=== PATIENT | female | born 1950 | race Two or more races ===

== ENCOUNTER 2018-06-01 15:36 | Emergency (ER) | payer OTHER ==
[~2018-06-01] VITALS: Ht 149.9 cm; Wt 65.8 kg
[~2018-06-01 15:36] MED LIST: ENAL5TAB; GLIP1TAB38; METF-370
[2018-06-01 17:09] LABS: Anion Gap 9 (5-15); Blood Urea Nitrogen 18 mg/dL (7-18); Calcium 9.4 mg/dL (8.5-10.1); Carbon Dioxide 22 mmol/L (21-32); Chloride 106 mmol/L (98-107); Glucose 175 mg/dL (74-106); Potassium 3.6 mmol/L (3.5-5.1); Sodium 137 mmol/L (136-145)
[2018-06-01 17:14] LABS: Alanine Aminotransferase 19 U/L (13-56); Alkaline Phosphatase 126 U/L (45-117); Aspartate Aminotransferase 17 U/L (15-37); BUN/Creatinine Ratio 25.7; Bilirubin, Total 0.7 mg/dL (0.2-1.0); GFR African American 108 mL/min; GFR Non-African American 89 mL/min; Total Protein 7.9 g/dL (6.4-8.2)
[2018-06-01 17:16] LABS: Basophils # (auto) 0 uL; Basophils % (auto) 0.2 % (0.0-2.0); Eosinophils # (auto) 0 uL; Hematocrit 42.1 % (36.0-46.0); Hemoglobin 13.4 g/dL (12.2-16.2); Lymphocytes # (auto) 0.6 uL; Lymphocytes % (auto) 6.9 % (10.0-50.0); Mean Corpuscular Hemoglobin 27.4 pg (28.0-32.0); Mean Corpuscular Hgb Conc. 31.9 g/dL (32.0-36.0); Mean Corpuscular Volume 85.8 fL (80.0-100.0); Monocytes # (auto) 0.2 uL; Monocytes % (auto) 2.8 % (0.0-12.0); Neutrophils # (auto) 8.1 uL; Neutrophils % (auto) 90.1 % (37.0-80.0); Platelet Count (auto) 269 10^3/uL (140-450); Red Blood Cells 4.91 10^6/uL (4.0-5.20); Red Cell Distribution Width 14.5 % (11.8-14.3)
[2018-06-01] MEDS ORDERED: MECLIZINE HCL 25 MG TAB PO ONE (17:45)
[2018-06-01 19:23] VITALS: BP 142/73
== END 2018-06-01 19:39 | disposition home or self-care (01) ==
LOC: ER 15:41
DX: R42 Dizziness and giddiness (principal); R11.2 Nausea with vomiting, unspecified; E11.9 Type 2 diabetes mellitus without complications; I10 Essential (primary) hypertension
CPT/HCPCS: 36415; 70450; 80053; 82962; 84484; 85025; 93005; 99284; J8597

== ENCOUNTER 2020-04-25 11:41 | Emergency (ER) | payer OTHER ==
[~2020-04-25] VITALS: Ht 149.9 cm; Wt 71.7 kg
[~2020-04-25 11:41] MED LIST changes: -ENAL5TAB; +ENAL5TAB10; +GLIP10TA16; -GLIP1TAB38; +ONDA-144 PO
[2020-04-25] MEDS ORDERED: HYDROcodone-ACET 5/325MG TAB PO ONE (13:30)
[2020-04-25 14:21] VITALS: BP 168/74
== END 2020-04-25 14:41 | disposition home or self-care (01) ==
LOC: ER 11:41
DX: S52.612A Displaced fracture of left ulna styloid process, initial encounter for closed fracture (principal); S52.502A Unspecified fracture of the lower end of left radius, initial encounter for closed fracture; E11.9 Type 2 diabetes mellitus without complications; I10 Essential (primary) hypertension; W19.XXXA Unspecified fall, initial encounter; Y93.89 Activity, other specified; Y99.8 Other external cause status; Y92.89 Other specified places as the place of occurrence of the external cause
CPT/HCPCS: 29125; 73110

== ENCOUNTER 2023-10-07 02:28 | Emergency (ER) | payer OTHER ==
[~2023-10-07] VITALS: Ht 149.9 cm; Wt 67.2 kg
[~2023-10-07 02:28] MED LIST changes: -ENAL5TAB10; +ENAL5TAB22; -GLIP10TA16; +GLIP10TA21
[2023-10-07] MEDS ORDERED: TRAM-626 PO (03:38)
[2023-10-07] MEDS: HYDROcodone-ACET 5/325MG TAB PO ONE (04:22)
[2023-10-07 04:51] VITALS: BP 169/65; PULSE 77; RESP 20; TEMP 97.6; O2SAT 99
== END 2023-10-07 04:30 | disposition home or self-care (01) ==
LOC: ER 02:28
DX: M51.36 Other intervertebral disc degeneration, lumbar region (principal); M62.830 Muscle spasm of back; M54.42 Lumbago with sciatica, left side; M25.552 Pain in left hip; E11.9 Type 2 diabetes mellitus without complications; E78.5 Hyperlipidemia, unspecified; I10 Essential (primary) hypertension
CPT/HCPCS: 72100; 73502

== ENCOUNTER 2024-07-29 08:24 | Emergency (ER) | payer OTHER ==
[~2024-07-29] VITALS: Ht 149.9 cm; Wt 63.0 kg
[2024-07-29 08:24] VITALS: TEMP 98.2
[~2024-07-29 08:24] MED LIST changes: +TRAM-626 PO
[2024-07-29 08:45] VITALS: BP 156/105; PULSE 8; RESP 16; O2SAT 96
--- NOTE | 2024-07-29 09:08 | ED.PDOC ---
Musculoskeletal HPI Comments A 73 YEAR OLD FEMALE PRESENTS TO THE ED WITH CHIEF COMPLAINT OF BACK PAIN. PATIENT REPORTS THAT SHE HAS BEEN EXPERIENCING LEFT SIDED LOWER BACK PAIN THAT RADIATES DOWN HER LEFT LEG SINCE YESTERDAY. PATIENT RELAYS THAT SHE HAS HISTORY OF SCIATICA AND HAS INSTANCES OF INTERMITTENT PAIN FOR THE PAST YEAR. YESTERDAY, SHE STARTED HAVING LOWER BACK AGAIN AND THE PAIN RADIATES TO LEFT LOWER LEG. PATIENT DENIES ANY NUMBNESS, WEAKNESS, FALL, OR INJURY. NO OTHER SYMPTOMS REPORTED AT THIS TIME OF CARE. Chief Complaint: Lower Extremity Time Seen by MD: 09:03 Primary Care Provider: FLAVIA Reviewed Notes: Nurses Notes, Medications, Allergies Allergies: Coded Allergies: NO KNOWN ALLERGIES (Unverified , 04/30/11) Home Meds Active Scripts Tramadol HCl (Tramadol HCl) 50 Mg Tab, 50 MG PO BID, #24 TAB Prov:RINA RAVI 07/29/24 Tramadol HCl (Tramadol HCl) 50 Mg Tab, 1 TAB PO Q6HPRN PRN, #8 TAB As needed for pain Prov:ANNMARIE NOVOA NP 10/07/23 Ondansetron (Zofran) 4 Mg Tab, 4 MG PO Q4HPRN PRN, #30 TAB Prov:BERNADETTE ALDANA MD 10/06/18 Reported Medications Metformin Hydrochloride (Metformin Hcl) 500 Mg Tab 04/30/11 Glipizide (Glipizide Er) 10 Mg Tab 04/30/11 Enalapril Maleate (Enalapril Maleate) 5 Mg Tab 04/30/11 Information Source: Patient, Relative (DAUGHTER) Mode of Arrival: Ambulatory Location: Left Extremity Location: Back, Leg Timing: Days Prehospital treatment: None Severity: Moderate Able to Move Extremity: Yes Bear Weight: Fully Pain: Moderate Mechanism: Spontaneous Circumstances: Other (SCIATICA) Onset of Symptoms: Spontaneous Symptoms: Pain DVT Risk Factors: NONE Associated signs and symptoms: Back pain, Leg pain Past Medical History PAST MEDICAL HISTORY: DM, High Lipids, HTN Past Medical History (Other): SCIATICA Surgical History: Denies all surgeries 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 Family History Family History: Unknown, Unobtainable Social History Smoker: Non-Smoker Alcohol: Denies ETOH Use Drugs: Denies Drug Use Lives In: Home Constitutional: denies: chills, diaphoresis, fatigue, fever, malaise, sweats, weakness, others EENTM: denies: blurred vision, double vision, ear bleeding, ear discharge, ear drainage, ear pain, ear ringing, eye pain, eye redness, hearing loss, mouth pain, mouth swelling, nasal discharge, nose bleeding, nose congestion, nose pain, photophobia, tearing, throat pain, throat swelling, voice changes, others Respiratory: denies: cough, hemoptysis, orthopnea, SOB at rest, shortness of breath, SOB with excertion, stridor, wheezing, others Cardiovascular: denies: chest pain, dizzy spells, diaphoresis, Dyspnea on exertion, edema, irregular heart beat, left arm pain, lightheadedness, palpitations, PND, syncope, others Gastrointestinal: denies: abdomen distended, abdominal pain, blood streaked bowels, constipated, diarrhea, dysphagia, difficulty swallowing, hematemesis, melena, nausea, poor appetite, poor fluid intake, rectal bleeding, rectal pain, vomiting, others Genitourinary: denies: abnormal vagina bleeding, burning, dyspareunia, dysuria, flank pain, frequency, hematuria, incontinence, pain, , vagina discharge, urgency, others Neurological: denies: dizziness, fainting, headache, left sided numbness, left sided weakness, numbness, paresthesia, pre-existing deficit, right sided numbness, right sided weakness, seizure, speech problems, tingling, tremors, weakness, others Musculoskeletal: reports: back pain, muscle pain, others (LEFT LEG PAIN); denies: gout, joint pain, joint swelling, muscle stiffness, neck pain Integumetry: denies: bruises, change in color, change in hair/nails, dryness, laceration, lesions, lumps, rash, wounds, others Allergic/Immunocompromised: denies: Difficulty Healing, Frequent Infections, Hives, Itching, others Hematologic/Lymphatic: denies: anemia, blood clots, easy bleeding, easy bruising, swollen glands, others Endocrine: denies: excessive hunger, excessive sweating, excessive thirst, excessive urination, flushing, intolerance to cold, intolerance to heat, unexplained weight gain, unexplained weight loss, others Psychiatric: denies: anxiety, bipolar disorder, depression, hopeless, panic disorder, schizophrenia, sleepless, suicidal, others All Other Systems: Reviewed and Negative Physical Exam General Appearance: No Apparent Distress, Normal HEENT: Normal ENT Inspection, PERRL/EOMI, Pharynx Normal Neck: Full Range of Motion, Non-Tender, Normal, Normal Inspection Respiratory: Chest Non-Tender, Lungs Clear, No Accessory Muscle Use, No Respiratory Distress, Normal Breath Sounds Cardiovascular: No Edema, No JVD, No Murmur, No Gallop, Normal Peripheral Pulses, Regular Rate/Rhythm Breast Exam: Deferred Gastrointestinal: No Organomegaly, Non Tender, No Pulsatile Mass, Normal Bowel Sounds, Soft Genitalia: Deferred Pelvic: Deferred Rectal: Deferred Extremities: No calf tenderness, Normal capillary refill, Normal inspection, Normal range of motion, Non-tender, No pedal edema Musculoskeletal : Location: Left Extremity Location: Back, Other (NO REDNESS, SWELLING AND DVT SIGNS OF LEFT LOWER LEG. ) Apperance: Tenderness: Moderate (LOWER BACK, NO BONY TENDERNESS, SWELLING AND DEFORMITY. ) Neurologic: Alert, water treatment technician II-XII nml as Tested, No Motor Deficits, Normal Affect, Normal Mood, No Sensory Deficits Cerebellar Function: Normal Reflexes: Normal Skin: Dry, Normal Color, Warm Peripheral Pulses: 2+ carotid (R), 2+ carotid (L), 2+ dorsalis pedis (R), 2+ dorsalis pedis (L) Lymphatic: No Adenopathy Was a procedure done? Was a procedure done?: No Differential Diagnosis EXT Differential Diagnosis: Sprain, Strain X-Ray, Labs, Meds, VS Vital Signs Date Time Temp Pulse Resp B/P (MAP) Pulse Ox O2 Delivery O2 Flow Rate FiO2 07/29/24 08:45 98.2 8 16 156/105 (122) 96 07/29/24 08:24 84 16 96 Room Air 07/29/24 08:24 98.2 84 16 156/105 (122) 96 98.2 Current Medications Medications (Trade) Dose Ordered Sig/Richelle Route Start Time Stop Time Status Last Admin Acetaminophen/ Hydrocodone Bitart ([place] 5/325MG Tab) 1 tab ONCE ONCE PO 07/29/24 09:15 07/29/24 09:16 DC 07/29/24 09:11 PATIENT: MARC BECKERIAACCT: [id number]: [id number] : 1950 LOC: ER ROOM / BED: / AGE / SEX: 73 / F ADM STATUS: REG ER SERVICE 2 ORDERING PHYSICIAN: RINA RAVI PROCEDURE(s): LUMB2 - LUMBAR SPINE 3 VIEW REASON: LOW BACK PAIN TO LEFT LOWER LEG ORDER NUMBER(s): [id number], ACCESSION NUMBER(s): [id number] EXAM: XY LUMBAR SPINE 3 VIEW HISTORY: LOW BACK PAIN TO LEFT LOWER LEG COMPARISON: XY LUMBAR SPINE 3 VIEW on DOS: 10/07/23 TECHNIQUE: AP and lateral views of the lumbar spine and spot lateral of the lumbosacral junction were performed. FINDINGS: No fracture or listhesis of the lumbar spine. There is advanced degenerative disc disease L5-S1, less severe degenerative disc disease at the more cephalad levels. Surgical clips in the right upper quadrant are consistent with prior cholecystectomy. IMPRESSION: Degenerative changes of the lumbar spine without evidence of fracture. If the patient complains of lower extremity radicular symptoms, consider follow- up noncontrast MRI of the lumbar spine on a nonemergent basis for evaluation of the exiting nerve roots. ATED BY: CESAR MILAN MD DICTATED DATE/TIME: 07/29/24929 SIGNED BY: CESAR MILAN MD SIGNED DATE/TIME: 07/29/24929 CC: X-Ray, Labs, Meds, VS Comment EXTERNAL MEDICAL RECORDS REVIEWED: 10/07/23 FOR BACK MUSCLE SPASM INDEPENDENT HISTORIANS: DAUGHTER SOCIAL DETERMINANTS OF HEALTH: [NONE] LABS ORDERED: NONE REVIEWED AND INTERPRETED RESULTS: L-SPINE XR: INTERPRETED BY ME. NO ACUTE FINDINGS. NO FRACTURES OR DISLOCATION. DEGENERATIVE CHANGES NOTED TO L5-S1. PENDING RADIOLOGIST REPORT. IMAGING ORDERED: L-SPINE XR TREATMENTS ORDERED: NORCO 5/325 MG PO PROCEDURES PERFORMED: NONE CRITICAL CARE TIME: NONE I HAVE DISCUSSED THE PATIENT WITH THE ATTENDING PHYSICIAN DR. REEDER AND HE AGREES WITH THE PATIENT'S PLAN OF CARE AND DISPOSITION. BASED ON HISTORY OF PRESENT ILLNESS, AND PHYSICAL EXAM, PATIENT WILL BE DISCHARGED HOME. DISCUSSED PLAN FOR DISCHARGE HOME WITH RX. MEDICATION WARNINGS GIVEN. SHARED DECISION MAKING: DISCUSSED WITH PATIENT THAT THEIR WORKUP WAS NORMAL. PATIENT INSTRUCTED TO FOLLOW UP WITH PRIMARY CARE PROVIDER IN 1-2 DAYS FOR RE- EVALUATION OF SYMPTOMS. PATIENT VERBALIZES UNDERSTANDING TO RETURN TO ED FOR NEW OR WORSENING SYMPTOMS OR IF FOLLOW UP WITH PCP CANNOT BE OBTAINED. PATIENT FEELS COMFORTABLE GOING HOME AT THIS TIME. ALL QUESTIONS ADDRESSED AT TIME OF DISCHARGE. Time of 1ST Reevaluation: 09:44 Reevaluation 1ST: Improved Patient Education/Counseling: Diagnosis, Treatment Family Education/Counseling: Diagnosis, Treatment Medical Screening: No EMC Exist At This Time Departure 1 Departure Time of Disposition: 10:00 Impression: Primary Impression: DDD (degenerative disc disease), lumbar Qualified Codes: M51.362 - Other intervertebral disc degeneration, lumbar region with discogenic back pain and lower extremity pain Additional Impression: Left lumbar radiculopathy Disposition: HOME / SELF CARE / HOMELESS Condition: Stable Additional Instructions: FOLLOW-UP WITH PCP IN 1 TO 2 DAYS. TAKE MEDICATIONS PRESCRIBED. RETURN TO ED FOR ANY NEW OR WORSENING SYMPTOMS. e-Prescriptions Tramadol HCl (Tramadol HCl) 50 Mg Tab 50 MG PO BID, #24 TAB Prov: RINA RAVI 07/29/24 Discharged With: Self, Relative Critical Care Note Critical Care Time?: No Stability Stability form required: No Heart Score Heart Score: Heart Score Response (Comments) Value History N/A 0 EKG N/A 0 Age N/A 0 Risk Factors N/A 0 Troponin N/A 0 Total 0 I personally scribed for RINA RAVI ([email or web address]) on 07/29/24 at 09:08. Electronically submitted by Darvin Gamboa ([email or web address]). I personally scribed for RINA RAVI ([email or web address]) on 07/29/24 at 09:15. Electronically submitted by Darvin Gamboa ([email or web address]). I personally scribed for RINA RAVI ([email or web address]) on 07/29/24 at 09:18. Electronically submitted by Darvin Gamboa ([email or web address]). RINA RAVI Jul 29, 2024 09:08
[2024-07-29] MEDS: HYDROcodone-ACET 5/325MG TAB PO ONE (09:11)
--- NOTE | 2024-07-29 09:32 | DVH ---
EXAM: XY LUMBAR SPINE 3 VIEW HISTORY: LOW BACK PAIN TO LEFT LOWER LEG COMPARISON: XY LUMBAR SPINE 3 VIEW on DOS: 10/07/23 TECHNIQUE: AP and lateral views of the lumbar spine and spot lateral of the lumbosacral junction were performed. FINDINGS: No fracture or listhesis of the lumbar spine. There is advanced degenerative disc disease L5-S1, les s severe degenerative disc disease at the more cephalad levels. Surgical clips in the right upper qu adrant are consistent with prior cholecystectomy. IMPRESSION: Degenerative changes of the lumbar spine without evidence of fracture. If the patient complains of lower extremity radicular symptoms, consider follow-up noncontrast MRI of the lumbar spine on a nonemergent basis for evaluation of the exiting nerve roots.
[2024-07-29] MEDS ORDERED: TRAM-626 PO (09:42)
== END 2024-07-29 09:47 | disposition home or self-care (01) ==
LOC: ER 08:24
DX: M51.369 Other intervertebral disc degeneration, lumbar region without mention of lumbar back pain or lower extremity pain (principal); M54.16 Radiculopathy, lumbar region; I10 Essential (primary) hypertension; E11.9 Type 2 diabetes mellitus without complications; E78.5 Hyperlipidemia, unspecified
CPT/HCPCS: 72100